=== PATIENT | male | born 1990 | race Caucasian/White ===

== ENCOUNTER 2017-04-20 01:05 | Emergency (ER) | payer SELFPAY ==
[~2017-04-20] VITALS: Ht 167.6 cm; Wt 55.6 kg
[2017-04-20 01:11] VITALS: Ht 167.6 cm; Wt 55.6 kg
[2017-04-20] MEDS ORDERED: FLUORESCEIN STRIP BOTH EYES ONE (03:00)
[2017-04-20] MEDS ORDERED: TETRACAINE 0.5% 4 ML OPH BOTH EYES ONE (03:00)
[2017-04-20] MEDS ORDERED: OFLO5DRO46 RIGHT EYE (03:59)
[2017-04-20] MEDS ORDERED: IBUP-1542 PO (04:00)
--- NOTE | 2017-04-20 04:09 | ERD ---
ER Documentation Chief Complaint Chief Complaint splinter in his R eye mins ago HPI Patient is a 26-year-old male who presents ED for concerns of a foreign body in his right eye. Patient states that he was cutting a copper pipe at his friend' s house around 12 AM when he got some pieces of metal stuck in his eye. Patient denies using any protective head wear. Patient was only wearing his regular eye glasses. Patient states he is able to see however it is slightly blurry. Patient states he rinsed his eye out with water for approximately 20 minutes prior to arrival. Patient denies any pain with eye movement. Patient denies any fevers or chills. Patient denies any contact lens use. ROS All systems reviewed and are negative except as per history of present illness. Medications Home Meds Active Scripts Ibuprofen* (Motrin*) 600 Mg Tab, 600 MG PO Q6, #30 TAB Prov:JOELLEN ESCAMILLA PA-C 04/20/17 Ofloxacin* (Ocuflox*) 0.3%-5 Ml Ophth Drops, 1 DROP RIGHT EYE QID for 7 Days, BOTTLE Prov:JOELLEN ESCAMILLA PA-C 04/20/17 Allergies Allergies: Coded Allergies: No Known Allergy (Verified , 02/14/14) PMhx/Soc History of Surgery: No Anesthesia Reaction: No Hx Neurological Disorder: No Hx Respiratory Disorders: No Hx Cardiac Disorders: No Hx Psychiatric Problems: No Hx Miscellaneous Medical Probl: No Hx Alcohol Use: No Hx Substance Use: Yes ("WEED") Hx Tobacco Use: No Smoking Status: Never smoker Physical Exam Vitals Vital Signs Date Time Temp Pulse Resp B/P Pulse Ox O2 Delivery O2 Flow Rate FiO2 04/20/17 01:11 95.6 64 18 116/56 99 Physical Exam GENERAL: Well-developed, well-nourished male. Appears in no acute distress. HEAD: Normocephalic, atraumatic. EYE: Visual acuity using Snellen eye chart was attempted however patient refused to read the numbers. Patient was able to distinguish fingers and individuals in front of him. Normal eye alignment. No orbital swelling or erythema. No proptosis. No pain with eye movement. Pupils equal, round, and reactive to light. EOMs intact. No conjunctival discoloration, erythema or chemosis. No scleral icterus. No eye discharge. Anterior chamber clear. No hyphema or hypopion. Wood's lamp exam: No foreign bodies, corneal abrasions or ulcerations visualized with fluorescein dye. Negative Smith sign. ENT: Moist mucous membranes. No uvula deviation. No kissing tonsils. NECK: Supple. No meningismus. Normal range of motion of the neck. LUNG: Clear to auscultation bilaterally. No rhonchi, wheezing, rales or coarse breath sounds. HEART: Regular rate and rhythm. No murmurs, rubs or gallops. ABDOMEN: No scars, ecchymosis or rashes noted. Soft, nontender, and nondistended. Positive bowel sounds in all four quadrants. No rebound tenderness , no guarding. (-) McBurney's point tenderness. No CVA tenderness. BACK: No midline tenderness. EXTREMITIES: Equal pulses bilaterally. No peripheral clubbing, cyanosis or edema. No unilateral leg swelling. NEUROLOGIC: Alert and oriented. Moving all four extremities without any difficulty. Normal speech. Steady gait. SKIN: Normal color. Warm and dry. No rashes or lesions. Results 24 hrs Current Medications Medications (Trade) Dose Ordered Sig/Jaquelin Route PRN Reason Start Time Stop Time Status Last Admin Dose Admin Tetracaine HCl (Tetracaine 0.5% Steri-Unit Gricelda) 1 drop ONCE ONCE BOTH EYES 04/20/17 03:00 04/20/17 03:01 DC Fluorescein Sodium (Rbsks-F-Hxgpl) 1 strip ONCE ONCE BOTH EYES 04/20/17 03:00 04/20/17 03:01 DC Procedures/MDM MEDICAL DECISION MAKING: This is a 26-year-old male who presents with right eye pain and concerns of a foreign body. Patient states he was cutting a copper pipe at his friend's house when he felt that some metal pieces got stuck in his eye. Patient was not wearing eye or head protective wear. Vital signs were reviewed. Patient was afebrile. Patient's vision was grossly intact. Fluorescein stain showed no signs of retained foreign body, ulcerations or abrasions. Negative Smith sign noted. Patient's eye was rinsed out using Yuniel lens. At this time, patient presentation was consistent with corneal irritation. Patient for orbital rupture, retained foreign body, bacterial conjunctivitis, orbital cellulitis, orbital cellulitis, orbital rim fracture. Patient will be empirically treated with a course of antibiotics. Strict ophthalmology follow- up was advised. PRESCRIPTIONS: Ibuprofen, Ocuflox DISCHARGE: At this time, patient is stable for discharge and outpatient management. Supportive measures were discussed with patient including warm/cool compresses. Patient advised not to wear contact lenses or eye makeup. I have instructed the patient to follow-up with his/her primary care physician in 1-2 days. I have discussed with the patient the possibility of needing to see an eyeglass frames polisher for further workup if symptoms persist. I have instructed the patient to promptly return to the ER for any new or worsening symptoms including increased pain, fever, swelling, redness, warmth, nausea, vomiting, . The patient and/or family expressed understanding of and agreement with this plan. All questions were answered. Home care instructions were provided. Disclaimer: Inadvertent spelling and grammatical errors are likely due to EHR/ dictation software use and do not reflect on the overall quality of patient care. Also, please note that the electronic time recorded on this note does not necessarily reflect the actual time of the patient encounter. Departure Diagnosis: Primary Impression: Eye abrasion Encounter type: initial encounter Laterality: right Qualified Code: S05.8X1A - Abrasion of right eye, initial encounter Condition: Stable Patient Instructions: Corneal Injury, Eye Protection at Work: First Aid Referrals: [facility] YOU HAVE RECEIVED A MEDICAL SCREENING EXAM AND THE RESULTS INDICATE THAT YOU DO NOT HAVE A CONDITION THAT REQUIRES URGENT TREATMENT IN THE EMERGENCY DEPARTMENT. FURTHER EVALUATION AND TREATMENT OF YOUR CONDITION CAN WAIT UNTIL YOU ARE SEEN IN YOUR DOCTORS OFFICE WITHIN THE NEXT 1-2 DAYS. IT IS YOUR RESPONSIBILITY TO MAKE AN APPOINTMENT FOR FOLOW-UP CARE. IF YOU HAVE A PRIMARY DOCTOR --you should call your primary doctor and schedule an appointment IF YOU DO NOT HAVE A PRIMARY DOCTOR YOU CAN CALL OUR PHYSICIAN REFERRAL HOTLINE AT IF YOU CAN NOT AFFORD TO SEE A PHYSICIAN YOU CAN CHOSE FROM THE FOLLOWING [facility] [address] [facility]. [facility] [address] [facility]. [facility] [place] [address] [facility] [address] [facility] [address] [facility]. [facility] [address] [facility]. [facility] YOU HAVE RECEIVED A MEDICAL SCREENING EXAM AND THE RESULTS INDICATE THAT YOU DO NOT HAVE A CONDITION THAT REQUIRES URGENT TREATMENT IN THE EMERGENCY DEPARTMENT. FURTHER EVALUATION AND TREATMENT OF YOUR CONDITION CAN WAIT UNTIL YOU ARE SEEN IN YOUR DOCTORS OFFICE WITHIN THE NEXT 1-2 DAYS. IT IS YOUR RESPONSIBILITY TO MAKE AN APPOINTMENT FOR FOLOW-UP CARE. IF YOU HAVE A PRIMARY DOCTOR --you should call your primary doctor and schedule and appointment IF YOU DO NOT HAVE A PRIMARY DOCTOR YOU CAN CALL OUR PHYSICIAN REFERRAL HOTLINE AT . IF YOU CAN NOT AFFORD TO SEE A PHYSICIAN YOU CAN CHOSE FROM THE FOLLOWING [facility] INSTITUTIONS: [facility] [address] [place] [address] [facility] [address] [place] [address] [facility] [address] [place] [address] Additional Instructions: Follow up with an eye doctor in the next 1-2 days. Use antibiotic drops. Call your primary care doctor TOMORROW for an appointment during the next 1-2 days.See the doctor sooner or return here if your condition worsens before your appointment time. JOELLEN ESCAMILLA PA-C Apr 20, 2017 04:09
== END 2017-04-20 04:12 | disposition home or self-care (01) ==
LOC: FTE 01:05
DX: S05.8X1A Other injuries of right eye and orbit, initial encounter (principal); W22.8XXA Striking against or struck by other objects, initial encounter; Y92.9 Unspecified place or not applicable
CPT/HCPCS: 99284

== ENCOUNTER 2017-05-10 07:56 | Emergency (ER) | payer OTHER ==
[~2017-05-10] VITALS: Ht 157.5 cm; Wt 56.0 kg
[~2017-05-10 07:56] MED LIST: IBUP-1542 PO; OFLO5DRO46 RIGHT EYE
[2017-05-10 07:59] VITALS: Ht 157.5 cm; Wt 56.0 kg
[2017-05-10] MEDS ORDERED: ONDANSETRON (ODT) 4 MG TAB ODT STA (09:44)
--- NOTE | 2017-05-10 09:47 | ERD ---
ER Documentation Chief Complaint Chief Complaint abd pain with vomiting since last night HPI 26-year-old male who presents emergency department for abdominal pain, vomiting last night. Patient is inconsistent with his history. Stated that he is homeless and he came for water and food. Patient stating that he wants some water to relieve his abdominal pain. Denies headache, dizziness, blurred vision , neck pain, throat pain, difficulty swallowing, loss of appetite, shoulder pain , chest pain, back pain, constipation, urinary symptoms, loss of bowel bladder control, recent travel, recent long travel, recent exposure to any illness, recent changes in diet, recent antibiotic use in the last 3 months, difficulty walking, difficulty breathing when lying flat, fever, chills. ROS All systems reviewed and are negative except as per history of present illness. Medications Home Meds Active Scripts Famotidine* (Pepcid*) 20 Mg Tablet, 20 MG PO DAILY, #45 TAB Prov:KASEY CHAPPELL 05/10/17 Ondansetron Hcl* (Zofran*) 4 Mg Tablet, 4 MG PO Q8H Y for NAUSEA AND/OR VOMITING , #30 TAB Prov:TAMIKEJAVED Rodriguez 05/10/17 Acetaminophen* (Tylophen*) 500 Mg Capsule, 1 CAP PO Q6H Y for PAIN AND OR ELEVATED TEMP, #20 CAP Prov:GRISELOLIKASEY Rodriguez 05/10/17 Ibuprofen* (Motrin*) 600 Mg Tab, 600 MG PO Q6, #30 TAB Prov:JOELLEN ESCAMILLA PA-C 04/20/17 Ofloxacin* (Ocuflox*) 0.3%-5 Ml Ophth Drops, 1 DROP RIGHT EYE QID for 7 Days, BOTTLE Prov:JOELLEN ESCAMILLA PA-C 04/20/17 Allergies Allergies: Coded Allergies: No Known Allergy (Verified , 05/10/17) PMhx/Soc Medical and Surgical Hx: pt denies Medical Hx, pt denies Surgical Hx History of Surgery: No Anesthesia Reaction: No Hx Neurological Disorder: No Hx Respiratory Disorders: No Hx Cardiac Disorders: No Hx Psychiatric Problems: No Hx Miscellaneous Medical Probl: No Hx Alcohol Use: Yes (drink alcohol last night) Hx Substance Use: Yes ("WEED") Hx Tobacco Use: Yes Smoking Status: Current some day smoker Physical Exam Vitals Vital Signs Date Time Temp Pulse Resp B/P Pulse Ox O2 Delivery O2 Flow Rate FiO2 05/10/17 07:59 97.6 104 18 112/65 98 Physical Exam Const: Well-appearing. Not in acute respiratory distress. Head: Atraumatic Eyes: Normal Conjunctiva ENT: Normal External Ears, Nose and Mouth. Neck: Full range of motion..~ No meningismus. Resp: Clear to auscultation bilaterally Cardio: Regular rate and rhythm, no murmurs Abd: Soft, non tender, non distended. Normal bowel sounds. There is no right upper/right lower/epigastric/left upper/left lower abdominal tenderness and likely palpation. Negative Rovsing sign. Negative and psoas sign. Negative on Janice sign (R test). Skin: No petechiae or rashes Back: No midline or flank tenderness Ext: No cyanosis, or edema Neur: Awake and alert Psych: Normal Mood and Affect Results 24 hrs Current Medications Medications (Trade) Dose Ordered Sig/Jaquelin Route PRN Reason Start Time Stop Time Status Last Admin Dose Admin Ondansetron HCl (Zofran Odt) 4 mg ONCE STAT ODT 05/10/17 09:44 05/10/17 09:45 DC 05/10/17 09:58 Miscellaneous Medication (Gi Cocktail (2)) 40 ml ONCE ONCE PO 05/10/17 10:00 05/10/17 10:01 DC 05/10/17 09:58 Procedures/MDM Treatment: Zofran. GI cocktail. P.o. challenge. Reevaluation: No episode of emesis here in the emergency department. Patient has been walking around the waiting area stating that he wants to eat. Patient was observed drinking water without vomiting and without discomfort. There is no abdominal tenderness. Negative Rovsing sign. Negative Janice sign (heel jar test). Negative psoas sign. No CVA tenderness. Ambulatory with steady gait and without abdominal pain and without discomfort. Differential:I have low suspicion for appendicitis, pancreatitis, diverticulitis , diverticulosis, sepsis, nephrolithiasis, pyelonephritis given that the patient has no abdominal tenderness, negative on Rovsing sign, negative Janice sign (object test), negative psoas sign, negative CVA tenderness, no signs of peritoneal irritation. Final diagnosis: Gastritis. Prescription: Pepcid. Zofran. Tylenol. Follow-up with PCP in the next 3-4 days. Come back here in the emergency department for any new symptoms or any worsening of symptoms. All questions and concerns are answered. Patient verbalized understanding and agreed with plan of care. Hemodynamically stable on discharge. Departure Diagnosis: Primary Impression: Gastritis Condition: Stable Additional Instructions: Follow-up with PCP in the next 3-4 days. Come back here in the emergency department for any new symptoms or any worsening of symptoms. All questions and concerns are answered. Patient verbalized understanding and agreed with plan of care. KASEY CHAPPELL May 10, 2017 09:47
[2017-05-10] MEDS ORDERED: LIDOCAINE/MYLANTA 40 ML BTL PO ONE (10:00)
[2017-05-10] MEDS ORDERED: ACET500C5 PO (12:23)
[2017-05-10] MEDS ORDERED: ONDA4TAB8 PO (12:24)
[2017-05-10] MEDS ORDERED: FAMO-96 PO (12:25)
== END 2017-05-10 13:16 | disposition home or self-care (01) ==
LOC: FTE 07:56
DX: K29.70 Gastritis, unspecified, without bleeding (principal); F17.210 Nicotine dependence, cigarettes, uncomplicated
CPT/HCPCS: 99283

== ENCOUNTER 2019-01-25 14:12 | Emergency (ER) | payer OTHER ==
[~2019-01-25] VITALS: Ht 167.6 cm; Wt 55.0 kg
[~2019-01-25 14:12] MED LIST changes: +ACET500C5 PO; +FAMO-96 PO; +ONDA4TAB8 PO
[2019-01-25 14:26] VITALS: BP 149/82; PULSE 72; RESP 19; Ht 167.6 cm; Wt 55.0 kg
[2019-01-25] MEDS ORDERED: AZITHROMYCIN 500 MG TAB PO ONE (15:00)
[2019-01-25] MEDS ORDERED: LIDOCAINE 1% (MPF) 5 ML VIAL INFIL ONE (15:00)
[2019-01-25] MEDS ORDERED: CEFTRIAXONE 250 MG INJ IM ONE (15:00)
== END 2019-01-25 15:25 | disposition home or self-care (01) ==
LOC: FTE 14:12
DX: Z11.3 Encounter for screening for infections with a predominantly sexual mode of transmission (principal)
CPT/HCPCS: 87591; 96372; J0696; Z7502; Z7610

== ENCOUNTER 2019-03-23 09:57 | Emergency (ER) | payer OTHER ==
[~2019-03-23] VITALS: Ht 152.4 cm; Wt 65.0 kg
[~2019-03-23 09:57] MED LIST changes: +ERYT1OIN6 RIGHT EYE; +HYDR-3029 PO
[2019-03-23 10:00] VITALS: BP 138/68; PULSE 70; RESP 18; Ht 152.4 cm; Wt 65.0 kg
== END 2019-03-23 12:21 | disposition home or self-care (01) ==
LOC: FTE 09:57
DX: S00.81XA Abrasion of other part of head, initial encounter (principal); R51 Headache; W01.198A Fall on same level from slipping, tripping and stumbling with subsequent striking against other object, initial encounter; Y92.9 Unspecified place or not applicable
CPT/HCPCS: 70450; Z7502